=== PATIENT | female | born 1950 | race Caucasian/White ===

== ENCOUNTER 2017-03-17 21:42 | Emergency (ER) | payer OTHER ==
[~2017-03-17] VITALS: Ht 152.4 cm; Wt 65.8 kg
[2017-03-17 22:34] LABS: BILIRUBIN NEGATIVE (NEGATIVE); BLOOD TRACE-INTACT (NEGATIVE); CLARITY SL CLOUDY (CLEAR); COLOR YELLOW (YELLOW); GLUCOSE NEGATIVE (NEGATIVE); KETONE NEGATIVE (NEGATIVE); LEUKO ESTERASE NEGATIVE (NEGATIVE); NITRITE NEGATIVE (NEGATIVE); PH 6.5 (5.0-9.0); SPECIFIC GRAVITY <= 1.005 (1.005-1.030); UROBILINOGEN 0.2 E.U./dl (0.2-1.0)
[2017-03-17 22:34] LABS: BASO # 0.1 10*3/uL (0.0-0.1); BASO % 0.5 % (0.0-1.0); EOS # 0.2 10*3/uL (0.0-0.4); EOS % 0.9 % (1.0-4.0); HEMATOCRIT 46.7 % (37.0-47.0); HEMOGLOBIN 15.1 g/dl (12.0-16.0); LYMPH # 2.9 10*3/uL (1.3-4.4); LYMPH % 17.8 % (27.0-41.0); MEAN CELL VOLUME 84.6 fl (81.0-99.0); MEAN CORPUSCULAR HGB 27.4 pg (27.0-31.0); MEAN CORPUSCULAR HGB CONC 32.3 g/dl (33.0-37.0); MEAN PLATELET VOLUME 11.6 fl (9.6-12.3); MONO # 1.5 10*3/uL (0.1-1.0); MONO % 9.1 % (3.0-9.0); NEUT # 11.6 10*3/uL (2.3-7.9); NEUT % 71.4 % (47.0-73.0); PLATELET COUNT AUTOMATED 192 10*3/uL (130-400); RED BLOOD COUNT 5.52 10*6/uL (4.10-5.10); RED CELL DISTRI WIDTH 15.1 % (0-14.5); WHITE BLOOD COUNT 16.3 10*3/uL (4.8-10.8)
[2017-03-17 22:43] LABS: BACTERIA 1+; RBC 0-2 rbc/hpf (0-2)
[2017-03-17 22:49] LABS: ALBUMIN 3.5 gm/dl (3.1-4.5); ALKALINE PHOSPHATASE 112 U/L (45-117); BUN 11 mg/dl (7-24); CHLORIDE 106 mmol/L (98-107); CREATININE 0.92 mg/dL (0.55-1.02); LIPASE 168 U/L (73-393); POTASSIUM 3.4 mmol/L (3.5-5.1); SGOT/AST 11 IU/L (3-35); SGPT/ALT 16 U/L (12-78); SODIUM 139 mmol/L (136-145); TOTAL PROTEIN 7.9 gm/dL (6.4-8.2)
[2017-03-18] MEDS ORDERED: ZITHROMAX250 MG PO (00:44)
== END 2017-03-18 01:21 | disposition left against medical advice (07) ==
LOC: ED 21:42
PROVIDERS: Physician Assistant
DX: J18.9 Pneumonia, unspecified organism (principal); F17.200 Nicotine dependence, unspecified, uncomplicated; J84.10 Pulmonary fibrosis, unspecified; Z96.651 Presence of right artificial knee joint